=== PATIENT | male | born 1955 | race Caucasian/White ===

== ENCOUNTER 2021-02-01 10:52 | Observation (INO) | payer OTHER ==
[~2021-02-01] VITALS: Ht 175.3 cm; Wt 108.4 kg
[~2021-02-01 10:52] MED LIST: ADVAIR 250-501 EACH INH; ASPIRIN EC81 MG PO; ATENOLOL-CHLOR1 EACH PO; DESONIDE15 GM TP; DOXEPIN HCL10 MG PO; EFFIENT10 MG PO; FLOMAX0.4 MG PO; IRON325 M1 PO; LEVOTHYROXINE88 MCG PO; LISINOPRIL5 MG PO; METFORMIN HCL500 MG PO; PRAVASTATIN SOD80 MG PO; WELLBUTRIN XL150 MG PO; [UNRECOGNIZED DRUG - OTHER] SQ
[2021-02-01 12:33] LABS: HEMOGLOBIN 11.9 gm/dl (14.0-17.5); RED BLOOD COUNT 3.64 M/UL (4.20-5.50); WHITE BLOOD COUNT 5.4 K/UL (4.5-11.0)
[2021-02-01 12:58] LABS: BUN/CREATININE RATIO 17 (0-10)
[2021-02-01] MEDS ORDERED: NOVOLOG FL100 UNIT/1 SC (13:34)
[2021-02-01] MEDS ORDERED: LANTUS100 UNIT/1 SC (13:35)
[2021-02-01] MEDS ORDERED: GABAPENTIN300 MG PO (13:54)
[2021-02-01] MEDS ORDERED: GEMFIBROZIL600 MG PO (13:54)
[2021-02-01] MEDS ORDERED: GLUCOTROL5 MG PO (13:54)
[2021-02-01] MEDS ORDERED: ASPIR-TRIN325 MG PO (13:55)
[2021-02-01] MEDS ORDERED: FISH OIL 1,0001 EACH PO (13:55)
[2021-02-01] MEDS ORDERED: RANEXA500 MG PO (13:56)
[2021-02-02 02:52] LABS: HEMOGLOBIN 11.1 gm/dl (14.0-17.5); RED BLOOD COUNT 3.4 M/UL (4.20-5.50); WHITE BLOOD COUNT 4.9 K/UL (4.5-11.0)
--- NOTE | 2021-02-02 22:12 | NUR ---
NOTIFIED DR DONALD OF BS-[facility]. RECIEVED ORDERS TO ADMINISTER 5 UNITS HUMALOG. WILL CONTINUE TO MONITOR.
[2021-02-03 02:53] LABS: HEMOGLOBIN 11.2 gm/dl (14.0-17.5); RED BLOOD COUNT 3.47 M/UL (4.20-5.50); WHITE BLOOD COUNT 3.7 K/UL (4.5-11.0)
== END 2021-02-03 11:48 | disposition home or self-care (01) ==
LOC: ER1 10:52 → CDU 13:21 → MED SURG 4 15:42
PROVIDERS: Emergency Medicine; ADMIT Internal Medicine
DX: R55 Syncope and collapse (principal); R29.6 Repeated falls; I45.10 Unspecified right bundle-branch block; E03.9 Hypothyroidism, unspecified; E11.42 Type 2 diabetes mellitus with diabetic polyneuropathy; M54.9 Dorsalgia, unspecified; G89.29 Other chronic pain; K74.60 Unspecified cirrhosis of liver; I25.10 Atherosclerotic heart disease of native coronary artery without angina pectoris; Z95.1 Presence of aortocoronary bypass graft; Z95.5 Presence of coronary angioplasty implant and graft; E78.5 Hyperlipidemia, unspecified; J44.9 Chronic obstructive pulmonary disease, unspecified; E66.9 Obesity, unspecified; Z20.822 Contact with and (suspected) exposure to COVID-19; W18.30XA Fall on same level, unspecified, initial encounter; S13.9XXA Sprain of joints and ligaments of unspecified parts of neck, initial encounter; I12.9 Hypertensive chronic kidney disease with stage 1 through stage 4 chronic kidney disease, or unspecified chronic kidney disease; N18.30 Chronic kidney disease, stage 3 unspecified; Z79.82 Long term (current) use of aspirin; G47.33 Obstructive sleep apnea (adult) (pediatric); D63.1 Anemia in chronic kidney disease; Z87.891 Personal history of nicotine dependence; Z91.19 Patient's noncompliance with other medical treatment and regimen
CPT/HCPCS: 36415; 70450; 71045; 72125; 80048; 80053; 80061; 82140; 82550; 82553; 82962; 83036; 83735; 83874; 84100; 84439; 84443; 84484; 85025; 85730; 86140; 93005; 96372; 99285; G0378; J1644; J7030; U0002